=== PATIENT | female | born 1990 | race Caucasian/White ===

== ENCOUNTER 2022-10-08 00:21 | Emergency (ER) | payer MEDICAID ==
[~2022-10-08] VITALS: Ht 155.7 cm; Wt 98.9 kg
[2022-10-08 00:44] VITALS: BP 96/55
--- NOTE | 2022-10-08 00:50 | NUR ---
PT TO BED 01
--- NOTE | 2022-10-08 00:50 | NUR ---
RECEIVED IN BED 1, 11WKS WITH VAGINAL BLEEDING X4HRS. REPORTS 5/10 LOWER ABD PAIN. STATES SHE HAD INTERCOURSE AND BLEEDING STARTED SHORTLY AFTER. REPORTS BURNING URINATION. STATES SHE IS O-, HASNT HAD RHOGAM YET. A0 L2
--- NOTE | 2022-10-08 01:30 | NUR ---
US AT BEDSIDE
[2022-10-08 01:32] LABS: BILIRUBIN,URINE NEGATIVE (NEGATIVE); BLOOD, URINE MODERATE (NEGATIVE); LEUKOCYTE ESTERASE ,URINE NEGATIVE (NEGATIVE); NITRITE, URINE NEGATIVE (NEGATIVE); UGLUCOSE NEGATIVE (NEGATIVE)
[2022-10-08 01:35] LABS: APPEARANCE,URINE CLEAR (CLEAR); COLOR,URINE YELLOW (YELLOW)
[2022-10-08 01:36] LABS: BASOPHILS % (AUTO) 0.5 % (0.0-2.0); EOSINOPHILS # (AUTO) 0.2 K/uL (0-0.4); HEMATOCRIT 36.6 % (36-48); HEMOGLOBIN 12.7 g/dL (12.0-16.0); LYMPHOCYTES # (AUTO) 2.8 K/uL (2.5-16.5); LYMPHOCYTES % (AUTO) 29.2 % (20.5-51.1); MEAN CORPUSCULAR HEMOGLOBIN 29 pg (27-31); MEAN CORPUSCULAR HGB CONC 35 g/dL (33-37); MEAN CORPUSCULAR VOLUME 84.7 fL (80-94); MONOCYTES # (AUTO) 0.9 K/uL (0.8-1.0); NEUTROPHILS # (AUTO) 5.7 K/uL (1.8-7.7); NEUTROPHILS % (AUTO) 59.3 % (42.2-75.2); PLATELET COUNT (AUTO) 291 K/uL (140-450); RED BLOOD CELL COUNT(AUTO) 4.32 MIL/uL (4.20-5.40); RED CELL DISTRIBUTION WIDTH 13.9 % (11.6-13.7); WHITE BLOOD COUNT (AUTO) 9.6 K/uL (4.8-10.8)
[2022-10-08 01:43] LABS: WBC,URINE NONE SEEN /HPF (0-5)
--- NOTE | 2022-10-08 03:00 | NUR ---
RESTING COMFORTABLY WITH EYES CLOSED. RESPIRATIONS REGULAR AND UNLABORED
--- NOTE | 2022-10-08 03:15 | NUR ---
AMBULATED TO BR WITH STEADY GAIT
--- NOTE | 2022-10-08 03:31 | NUR ---
RHOGAM ([id number]) ADMINISTERED IM RUOQ
[2022-10-08 04:25] VITALS: BP 96/55
--- NOTE | 2022-10-08 04:25 | NUR ---
Patient discharged with v/s stable. Written and verbal after care instructions given and explained. Patient verbalized understanding. Ambulatory with steady gait. All questions addressed prior to discharge. Advised to follow up with PMD.
== END 2022-10-08 04:25 | disposition home or self-care (01) ==
LOC: MED 00:21
DX: O20.0 Threatened abortion (principal); Z3A.11 11 weeks gestation of pregnancy; Z88.1 Allergy status to other antibiotic agents
CPT/HCPCS: 36415; 76817; 81001; 84702; 85025; 86886; 86900; 86901; 96372; 99284; J2790; Q0092